=== PATIENT | female | born 1930 | race Caucasian/White ===

== ENCOUNTER 2017-05-06 12:03 | Emergency (ER) | payer MEDICARE | END 2017-05-06 14:38 | disposition home or self-care (01) | LOC: ERS 12:03 | DX: J18.9 Pneumonia, unspecified organism (principal); E03.9 Hypothyroidism, unspecified; Z79.82 Long term (current) use of aspirin; Z79.899 Other long term (current) drug therapy | CPT/HCPCS: 99285 ==

== ENCOUNTER 2017-12-09 12:53 | Emergency (ER) | payer MEDICARE ==
[2017-12-09] MEDS ORDERED: Adacel (T-DAP) 0.5 ML VIAL ONE (13:28)
[2017-12-09] MEDS ORDERED: Bacitracin Zinc 1 Packet ONE (13:29)
[2017-12-09 13:38] LABS: #Basophils 0.1 thou/uL (0.0-0.2); #Eosinphils 0.3 thou/uL (0.0-0.7); #Lymphocytes 1.3 thou/uL (1.20-3.40); #Monocytes 0.9 thou/uL (0.11-0.59); #Neutrophils 5.6 thou/uL (1.40-6.50); %Basophils 0.6 % (0.0-1.0); %Eosinophils 4.2 % (0.0-10.0); %Monocytes 11.3 % (0.0-10.0); %Neutrophils 67.9 % (42.0-75.0); Hemoglobin 13.5 g/dL (12.0-16.0); Mean Corpuscular HGB CONC 33.8 g/dL (32.0-36.0); Mean Corpuscular Hemoglobin 31.9 pg (27.0-31.0); Mean Corpuscular Volume 94.4 fL (78.0-98.0); Mean Platelet Volume 6.4 fL (7.4-10.4); Platelet Count 221 thou/uL (130-400); RBC Distribution Width 12.9 % (11.5-14.5); Red Blood Cell (RBC) Count 4.23 mill/uL (4.20-5.40); White Blood Cell (WBC) Count 8.3 thou/uL (4.8-10.8)
[2017-12-09 13:56] LABS: ALT (SGPT) 9 U/L (8-55); AST (SGOT) 18 U/L (5-34); Albumin 4.2 g/dL (3.4-4.8); Alkaline Phosphatase 68 U/L (40-150); Anion Gap 14 mmol/L (10-20); BUN (Urea Nitrogen) 14 mg/dL (9.8-20.1); Bilirubin, Total 1.3 mg/dL (0.2-1.2); Calc. Creatinine Clearance 0 mL/min (70-130); Calcium 9.4 mg/dL (7.8-10.44); Carbon Dioxide 28 mmol/L (23-31); Chloride 103 mmol/L (98-107); Estimated GFR-MDRD 76; Globulin 2.4 g/dL (2.4-3.5); Glucose 84 mg/dL (83-110); Potassium 4.3 mmol/L (3.5-5.1); Protein, Total 6.6 g/dL (6.0-8.3); Sodium 141 mmol/L (136-145)
[2017-12-09 14:00] LABS: CKMB 3.4 ng/mL (0-6.6); Troponin I Less than 0.010 ng/mL (< 0.028)
[2017-12-09 14:24] LABS: Bilirubin Negative (Negative); Blood, Urine Negative (Negative); Clarity CLOUDY (Clear); Glucose, Urine (Dipstick) Negative (Negative); Leukocyte Small (Negative); Nitrite Negative (Negative); Protein, Urine (Dipstick) Negative (Neg-Trace); Specific Gravity, Urine 1.028 (1.002-1.036); Urobilinogen 0.2 mg/dL (0.2-1.0)
[2017-12-09 14:26] LABS: Bacteria/HPF None Seen HPF (None Seen); Pathc Cast-AUWi Flag 1.88 (0-2.49); WBC/HPF 0-3 HPF (0-3)
[2017-12-09 14:38] LABS: Crystals/HPF 2+ CA OXALATE HPF (Negative); Hyaline Casts/LPF 4-6 HYALINE CAST LPF (0-3 Hyaline); RBC/HPF 0-3 HPF (0-3)
--- NOTE | 2017-12-09 15:16 | RAD ---
LEFT WRIST 3 VIWS: INDICATION: Fall with injury. FINDINGS: Mild osteopenia. Mild degenerative change. No evidence of acute fracture identified. IMPRESSION: No evidence of acute fracture. POS: [facility]
--- NOTE | 2017-12-09 15:45 | CT ---
CT BRAIN WITHOUT CONTRAST: HISTORY: Trauma, fall, headache. FINDINGS: There are changes of cortical atrophy and chronic small-vessel ischemic disease. No evidence of acut e infarct, hemorrhage, midline shift, or abnormal extraaxial fluid collections is seen. There are ol d infarctions in the cerebellar hemispheres. The ventricular size is appropriate and the basilar cis terns are patent. The bony calvarium is intact. The visualized paranasal sinuses and mastoid air ce lls are well aerated. IMPRESSION: No Ct evidence of acute intracranial process. POS: [facility]
== END 2017-12-09 14:23 | disposition home or self-care (01) ==
LOC: ERS 12:53
DX: S63.502A Unspecified sprain of left wrist, initial encounter (principal); S00.33XA Contusion of nose, initial encounter; E03.9 Hypothyroidism, unspecified; Z79.82 Long term (current) use of aspirin; Z79.899 Other long term (current) drug therapy; W06.XXXA Fall from bed, initial encounter
CPT/HCPCS: 36415; 70450; 80053; 81003; 81015; 82553; 84484; 85025; 90471; 90715; 93005; 94760

== ENCOUNTER 2018-02-04 10:35 | Inpatient (IN) | payer MEDICARE ==
[2018-02-04 11:02] LABS: #Eosinphils 0.2 thou/uL (0.0-0.7); #Lymphocytes 0.8 thou/uL (1.20-3.40); #Monocytes 0.9 thou/uL (0.11-0.59); #Neutrophils 4.7 thou/uL (1.40-6.50); %Basophils 0.2 % (0.0-1.0); %Eosinophils 2.6 % (0.0-10.0); %Lymphocytes 12.3 % (21.0-51.0); %Monocytes 13.3 % (0.0-10.0); %Neutrophils 71.7 % (42.0-75.0); Hemoglobin 12.2 g/dL (12.0-16.0); Mean Corpuscular HGB CONC 32.9 g/dL (32.0-36.0); Mean Corpuscular Hemoglobin 31.3 pg (27.0-31.0); Mean Corpuscular Volume 95.3 fL (78.0-98.0); Mean Platelet Volume 6.6 fL (7.4-10.4); Platelet Count 253 thou/uL (130-400); RBC Distribution Width 12.8 % (11.5-14.5); White Blood Cell (WBC) Count 6.6 thou/uL (4.8-10.8)
--- NOTE | 2018-02-04 11:15 | RAD ---
SINGLE VIEW OF CHEST: Date: 02/04/18 COMPARISON: 05/06/17. HISTORY: Shortness of breath and dyspnea. FINDINGS: Single view of the chest shows a normal sized cardiomediastinal silhouette. There is no evidence of c onsolidation, mass, or pleural effusion. The bones are unremarkable. IMPRESSION: No evidence of acute cardiopulmonary disease. POS: [facility]
[2018-02-04 11:31] LABS: ALT (SGPT) 12 U/L (8-55); AST (SGOT) 19 U/L (5-34); Albumin 3.8 g/dL (3.4-4.8); Alkaline Phosphatase 63 U/L (40-150); Anion Gap 13 mmol/L (10-20); BUN (Urea Nitrogen) 8 mg/dL (9.8-20.1); Bilirubin, Total 1.3 mg/dL (0.2-1.2); Calc. Creatinine Clearance 0 mL/min (70-130); Calcium 9.3 mg/dL (7.8-10.44); Carbon Dioxide 28 mmol/L (23-31); Chloride 104 mmol/L (98-107); Estimated GFR-MDRD 87; Globulin 3.1 g/dL (2.4-3.5); Glucose 95 mg/dL (83-110); Protein, Total 6.9 g/dL (6.0-8.3); Sodium 141 mmol/L (136-145)
[2018-02-04 11:36] LABS: CKMB 1.4 ng/mL (0-6.6); Troponin I Less than 0.010 ng/mL (< 0.028)
[2018-02-04] MEDS ORDERED: methylPREDNISolone Sod Succ/PF 125 MG/2 ML VIAL ONE (11:37)
[2018-02-04] MEDS ORDERED: Albuterol Sulfate 1.25 MG/3 ML NEB ONE ×2 (11:38→13:12)
[2018-02-04] MEDS ORDERED: Furosemide 40 MG/4 ML VIAL ONE (12:00)
[2018-02-04] MEDS ORDERED: Acetaminophen 325 MG TAB PO PRN (13:35)
[2018-02-04] MEDS ORDERED: Bisacodyl 5 MG TAB PO PRN (13:35)
--- NOTE | 2018-02-04 13:50 | HP ---
PRIMARY CARE PROVIDER: Mango Gauthier M.D. CHIEF COMPLAINT: Shortness of breath. HISTORY OF PRESENT ILLNESS: Ms. Anderson is a pleasant 87-year-old lady who was seen at [facility] on 02/04/2018. She is accompanied by her daughter and son-in-law emergency room. She reports shortness of breath over the last 3 days. She reports shortness of breath with exertio n. She also reports cough that is productive of yellow sputum. She denies any fevers, chills, nause a, vomiting, or diarrhea. She reports generalized weakness. She denies any chest pain. She denies any orthopnea or paroxysmal nocturnal dyspnea. She denies any recent like symptoms. REVIEW OF SYSTEMS: All other systems reviewed and found to be negative. PAST MEDICAL HISTORY: Hypothyroidism and cardiac valve problem. PAST SURGICAL HISTORY: Cholecystectomy, appendectomy, tonsillectomy, and abdominal hernia repair. SOCIAL HISTORY: The patient quit smoking 5 years ago. She drinks 1 or 2 glasses of wine at night. She denies any recreational drug use. FAMILY HISTORY: No family history of premature coronary artery disease. ALLERGIES: No known drug allergies. CURRENT MEDICATIONS: Aspirin 81 mg daily, levothyroxine 50 mcg daily, PreserVision 1 capsule daily. CODE STATUS: I discussed her code status. She is DNR. PHYSICAL EXAMINATION: GENERAL: Ms. Anderson is awake and alert, not in acute distress. VITAL SIGNS: Blood pressure is 153/74, pulse 80, respiratory rate 20, and oxygen saturation 92% on 2 liters of oxygen. She is afebrile. EYES: No scleral icterus. No conjunctival pallor. ENT: Moist mucosal membranes, no oropharyngeal erythema or exudates. NECK: Supple, nontender, trachea is midline. RESPIRATORY: Accessory muscles of breathing are not active. Chest wall movements are symmetric bila terally. LUNGS: Reveals diffuse expiratory wheeze. CARDIOVASCULAR: S1 and S2 are heard, regular. Peripheral pulses are palpable. No carotid bruit, no pericardial rub. Systolic ejection murmur in the aortic area radiating to carotids. ABDOMEN: Soft, nontender, bowel sounds heard, no hepatomegaly, no splenomegaly. NEUROLOGIC: Cranial nerves II-XII are intact. Deep tendon reflexes are 2+. MUSCULOSKELETAL: Power is 5/5 in all 4 extremities. SKIN: No rashes or subcutaneous nodules. LYMPHATIC: No cervical lymphadenopathy. PSYCHIATRIC: Normal mood, normal affect, patient is oriented to person, place and time. LABORATORY DATA: Ms. Anderson's labs and investigations were reviewed. She had an electrocardiogram, which shows normal sinus rhythm, no ST changes to suggest an acute coronary syndrome. Chest x-ray do es not show any pulmonary infiltrates or evidence of volume overload. She has a normal white count, normal hemoglobin, normal platelet count, mildly elevated total bilirubin of 1.3, otherwise unremarka ble comprehensive metabolic profile, mildly elevated BNP of 313 and normal troponin I. ASSESSMENT AND PLAN: Ms. Anderson is a pleasant 87-year-old lady who was seen at [facility] on 02/04/2018. Her problem list includes: 1. Shortness of breath: Etiology unclear, she does have diffuse expiratory wheeze. She denies bein g diagnosed with chronic obstructive pulmonary disease in the past. Given her symptoms and findings, it is possible she has reactive airways. She also reports having yellowish sputum. We will treat h er with steroids, bronchodilators and antibiotics for chronic obstructive pulmonary disease exacerbat ion versus reactive airways disease. 2. Hypothyroidism: We will continue her on Synthroid. Many thanks for allowing me to participate in your patient's care. Please feel free to contact me wi th any questions or concerns. LEVEL OF RISK: Moderate. LEVEL OF COMPLEXITY: Moderate.
[2018-02-04 14:53] VITALS: BMI 26.9
[2018-02-04] MEDS ORDERED: Nystatin Powder 15 GM BOT TOP PRN (18:34)
[2018-02-04] MEDS: Amoxicillin/Potassium Clav 875 MG TAB PO SCH (21:06)
[2018-02-05 04:54] LABS: #Lymphocytes 0.4 thou/uL (1.20-3.40); #Monocytes 0.1 thou/uL (0.11-0.59); #Neutrophils 5.7 thou/uL (1.40-6.50); %Basophils 0.3 % (0.0-1.0); %Eosinophils 0.2 % (0.0-10.0); %Lymphocytes 5.8 % (21.0-51.0); %Monocytes 1.6 % (0.0-10.0); %Neutrophils 92.1 % (42.0-75.0); Hemoglobin 11.9 g/dL (12.0-16.0); Mean Corpuscular HGB CONC 32.3 g/dL (32.0-36.0); Mean Corpuscular Hemoglobin 30.9 pg (27.0-31.0); Mean Corpuscular Volume 95.4 fL (78.0-98.0); Mean Platelet Volume 6.8 fL (7.4-10.4); Platelet Count 267 thou/uL (130-400); RBC Distribution Width 12.7 % (11.5-14.5); Red Blood Cell (RBC) Count 3.87 mill/uL (4.20-5.40); White Blood Cell (WBC) Count 6.2 thou/uL (4.8-10.8)
[2018-02-05 05:18] LABS: Anion Gap 13 mmol/L (10-20); BUN (Urea Nitrogen) 15 mg/dL (9.8-20.1); Calc. Creatinine Clearance 54 mL/min (70-130); Calcium 9.3 mg/dL (7.8-10.44); Carbon Dioxide 29 mmol/L (23-31); Chloride 101 mmol/L (98-107); Estimated GFR-MDRD 79; Glucose 188 mg/dL (83-110); Potassium 3.8 mmol/L (3.5-5.1); Sodium 139 mmol/L (136-145)
[2018-02-05] MEDS: Amoxicillin/Potassium Clav 875 MG TAB PO SCH ×2 (08:05→20:32)
[2018-02-05] MEDS: Enoxaparin Sodium 40 MG/0.4 ML SYRINGE SC SCH (08:07)
--- NOTE | 2018-02-05 22:48 | PDOC.PN ---
- Subjective Encounter Start Date: 02/05/18 Encounter Start Time: 17:00 Subjective: nsg notes rev, jose e ovn -: f/u for URI and respiratory distress - significantly improved - Objective Resuscitation Status: Resuscitation Status DNR:Do Not Resuscitate Vital Signs & Weight: Vital Signs (12 hours) Temp Pulse Resp BP Pulse Ox 02/05/18 20:00 98.0 F 97 20 104/61 93 L 02/05/18 19:11 87 12 97 02/05/18 13:19 82 16 98 02/05/18 12:17 98.1 F 78 18 99/61 97 Weight Weight 138 lb Result Diagrams: 02/05/18 03:54 02/05/18 03:54 Phys Exam - Physical Examination Constitutional: NAD HEENT: moist MMs Respiratory: no wheezing, no rales, no rhonchi, clear to auscultation bilateral decreased air mvmt and mild conversational dyspnea Cardiovascular: RRR Gastrointestinal: soft, positive bowel sounds Musculoskeletal: no edema Neurological: moves all 4 limbs Psychiatric: normal affect, A&O x 3 Dx/Plan - Plan cont current plan of care shortness of breath, improved concern for likely bronchitis, possibly viral continue with empiric abx, supportive mgmt if rapid and continued improvement in symptoms, then will defer for o/p pulm f/u ; however, low threshold for inpt c/s if failure to improve diet: as derrick activity: as derrick dvt ppx d/w pt in detail - she is able to complete teachback
[2018-02-06] MEDS: Amoxicillin/Potassium Clav 875 MG TAB PO SCH ×2 (09:14→20:29)
[2018-02-06] MEDS: Enoxaparin Sodium 40 MG/0.4 ML SYRINGE SC SCH (09:15)
--- NOTE | 2018-02-06 16:40 | PDOC.PN ---
- Subjective Encounter Start Date: 02/06/18 Encounter Start Time: 18:00 Subjective: nsg notes rev, jose e ovn, overall feeling better and wanting to know if she -: might be able to go home tomorrow - Objective Resuscitation Status: Resuscitation Status DNR:Do Not Resuscitate Vital Signs & Weight: Vital Signs (12 hours) Temp Pulse Resp BP Pulse Ox 02/06/18 13:26 75 16 98 02/06/18 08:00 97.6 F 95 20 123/65 98 02/06/18 06:52 98 02/06/18 06:51 73 16 98 Weight Weight 138 lb I&O: 02/05/18 02/06/18 02/07/18 06:59 06:59 06:59 Intake Total 480 Balance 480 Result Diagrams: 02/05/18 03:54 02/05/18 03:54 Phys Exam - Physical Examination Constitutional: NAD Dx/Plan - Plan - Physical Examination Constitutional: NAD HEENT: moist MMs Respiratory: no wheezing, no rales, no rhonchi, clear to auscultation bilateral decreased air mvmt and no conversational dyspnea Cardiovascular: RRR Gastrointestinal: soft, positive bowel sounds Musculoskeletal: no edema Neurological: moves all 4 limbs, ambulating without assistance or difficulty Psychiatric: normal affect, A&O x 3 Dx/Plan - Plan cont current plan of care shortness of breath, improved concern for likely bronchitis, possibly viral continue with empiric abx, supportive mgmt de-escalate steroids to oral plan for o/p pulm c/s diet: as derrick activity: as derrick dvt ppx d/w pt in detail - she is able to complete teachback dispo: possible d/c on 02/07 if tolerates transition to an oral regimen Review of Systems - Medications/Allergies Allergies/Adverse Reactions: Allergies Allergy/AdvReac Type Severity Reaction Status Date / Time No Known Drug Allergies Allergy Verified 02/04/18 13:29 Medications: Current Medications Acetaminophen (Tylenol) 650 mg PO Q4H PRN PRN Reason: Headache/Fever/Mild Pain (1-3) Albuterol/Ipratropium (Duoneb) 3 ml NEB [id number] [id number] Last Admin: 02/07/18 00:18 Dose: 3 ml Albuterol/Ipratropium (Duoneb) 3 ml NEB [id number] PRN PRN Reason: SOB &/or Wheezing Amoxicillin/Clavulanate Potassium (Augmentin) 875 mg PO BID [facility] Last Admin: 02/06/18 20:29 Dose: 875 mg Bisacodyl (Dulcolax) 10 mg PO DAILYPRN PRN PRN Reason: Constipation Enoxaparin Sodium (Lovenox) 40 mg SC 0900 [facility] Last Admin: 02/06/18 09:15 Dose: Not Given Nystatin (Mycostatin Powder) 0 gm TOP BIDPRN PRN PRN Reason: Topical Irritations Last Admin: 02/05/18 08:08 Dose: 1 applic Prednisone (Prednisone) 40 mg PO QA-[facility] Stop: 02/10/18 08:01 Sodium Chloride (Flush - Normal Saline) 10 ml IVF Q12HR [facility] Last Admin: 02/06/18 20:30 Dose: 10 ml Sodium Chloride (Flush - Normal Saline) 10 ml IVF PRN PRN PRN Reason: Saline Flush
[2018-02-07 07:41] VITALS: BP 139/73
[2018-02-07] MEDS ORDERED: predniSONE 20 MG TAB PO SCH (08:00)
[2018-02-07 08:05] VITALS: TEMP 97.8
[2018-02-07] MEDS: Enoxaparin Sodium 40 MG/0.4 ML SYRINGE SC SCH (08:24)
[2018-02-07] MEDS: Amoxicillin/Potassium Clav 875 MG TAB PO SCH (08:24)
--- NOTE | 2018-02-07 13:14 | DIS ---
DATE OF ADMISSION: 02/04/2018 DATE OF DISCHARGE: 02/07/2018 PRIMARY CARE PHYSICIAN: Dr. Mango Gauthier. DISCHARGE DIAGNOSIS: Acute bronchitis. CONDITION OF PATIENT ON THE DAY OF DISCHARGE: Stable. I assessed Ms. Anderson on the day of discharge . She denies any chest pain or shortness of breath. Vital signs are stable. S1 and S2 are heard, r egular. Lungs are clear to auscultation bilaterally. HOSPITAL COURSE: Ms. Anderson is a pleasant 87-year-old lady who was admitted to [facility] on 02/04/2018 for shortness of breath secondary to suspected upper respiratory tract inf ection versus chronic obstructive pulmonary disease exacerbation versus reactive airways disease. Pl ease refer to my history and physical note dated 02/04/2018 for further details. She was treated with oxygen, steroids, bronchodilators and antibiotics. She improved clinically and is being discharged home in a stable condition. DISCHARGE MEDICATIONS: Aspirin 81 mg daily, Synthroid 50 mcg daily, multivitamins with iron 1 tablet daily, Augmentin 875 mg 2 times a day for 1 week, prednisone 40 mg daily for 3 more days. If she has recurrence of symptoms, she may benefit from Pulmonology consult. Many thanks for allowing me to participate in your patient's care. Please feel free to contact me wi th any questions or concerns. DISCHARGE DESTINATION: Home. TOTAL AMOUNT OF TIME SPENT COORDINATING THIS DISCHARGE: 32 minutes.
== END 2018-02-07 14:15 | disposition home or self-care (01) | DRG 203 ==
LOC: ERS 10:35 → T4-B 12:19
PROVIDERS: ADMIT Internal Medicine; ATTEND Internal Medicine
DX: J20.9 Acute bronchitis, unspecified (principal); E03.9 Hypothyroidism, unspecified; Z87.891 Personal history of nicotine dependence; Z79.82 Long term (current) use of aspirin; Z66 Do not resuscitate
CPT/HCPCS: 36415; 71045; 80048; 80053; 82553; 83880; 84484; 85025; 87804; 93005; 94640; 96374; 96375; J1650; J1940; J2920; J2930; J7506; J7620